=== PATIENT | female | born 1995 | race Caucasian/White ===

== ENCOUNTER → 2018-07-09 19:53 | Observation (INO) ==
[2018-07-09 16:57] LABS: Amphetamine Screen,Urine Negative ng/mL (Cutoff=1000); Barbiturate Screen,Urine Negative ng/mL (Cutoff=200); Benzodiazepines Screen,Urine Negative ng/mL (Cutoff=200); Cannabinoid Screen,Urine Negative ng/mL (Cutoff = 50); Cocaine Screen,Urine Negative ng/mL (Cutoff= 300); Opiate Screen,Urine Negative ng/mL (Cutoff=300); Phencyclidine Screen,Urine Negative ng/mL (Cutoff=25)
--- NOTE | 2018-07-09 19:30 | OB/GYN Progress Note ---
Date of Encounter: 07/09/18 Time of Encounter: 19:27 - Assessment and Plan (1) 37 weeks gestation of Current Visit: Yes Status: Acute (2) Fall (on) (from) other stairs and steps, initial encounter Current Visit: Yes Status: Acute Occasional contraction on monitor, but patient denies any current pain or cramping, discharged home with labor and when to return to triage precautions. Subjective - Subjective Interval history: Pt states about 1030am had fall at home fell down two stairs and landed on buttocks, denies hitting abdomen or sides. Pt states in hour following fall she had intense cramping, but always had good movement, denies vaginal bleeding or leaking of fluid. Was seen in Dr. Coronel office this afternoon and was sent over for 4 hours of monitoring. A+ blood type. Antepartum ROS: movement normal, contractions, no loss of fluid, no vaginal bleeding Objective - Vital Signs Vital Signs: Intake and Output 07/09/18 07/09/18 07/09/18 07:59 15:59 23:59 Other: Weight 100.244 kg Patient Weight 07/09/18 23:59 Weight 100.244 kg - Exam FHR: auscultation normal FHR comments: Baseline 135 Abdomen: Present: normal appearance, soft (no pain with any abdominal palpation ), gravid
== END | disposition home or self-care (01) ==
LOC: 1NENULAB
PROVIDERS: ADMIT Student in an Organized Health Care Education/Training Program; ATTEND Student in an Organized Health Care Education/Training Program

== ENCOUNTER 2018-08-02 22:00 | Inpatient (IN) ==
[2018-08-02] MEDS ORDERED: Ringers Solution, Lactated 1,000 ML ONE (22:56)
[2018-08-02] MEDS ORDERED: Famotidine 20 MG/2 ML VIAL IVP PRN (23:10)
[2018-08-02] MEDS ORDERED: Naloxone 0.4 MG/ML INJ IVP PRN (23:10)
[2018-08-02 23:16] LABS: Basophils % 0.2 %; Eosinophils # 0.1 K/mcL (0.0-0.6); Eosinophils % 0.7 %; Hemoglobin 11.5 g/dL (11.5-15.4); Immature Granulocytes % 0.5 % (0-4); Lymphocytes # 2.6 K/mcL (0.6-4.6); Lymphocytes % 23.3 %; Mean Corpuscular HGB Conc 33.8 g/dL (31.6-35.5); Mean Corpuscular Hemoglobin 31.2 pg (28.0-33.3); Mean Corpuscular Volume 92.1 fL (83.0-100.0); Monocytes # 0.8 K/mcL (0.0-1.3); Monocytes % 7.2 %; Neutrophils # 7.6 K/mcL (1.6-8.9); Platelet Count 258 K/mcL (140-400); Red Blood Count 3.69 M/mcL (3.82-4.97); Red Cell Distribution Width 12.9 % (11.5-14.5); Segmented Neutrophils % 68.1 %
[2018-08-02] MEDS ORDERED: miSOPROStol 100 MCG TABLET PO PRN (23:24)
[2018-08-02 23:37] LABS: Amphetamine Screen,Urine Negative ng/mL (Cutoff=1000); Barbiturate Screen,Urine Negative ng/mL (Cutoff=200); Benzodiazepines Screen,Urine Negative ng/mL (Cutoff=200); Cannabinoid Screen,Urine Negative ng/mL (Cutoff = 50); Cocaine Screen,Urine Negative ng/mL (Cutoff= 300); Opiate Screen,Urine Negative ng/mL (Cutoff=300); Phencyclidine Screen,Urine Negative ng/mL (Cutoff=25)
[2018-08-03] MEDS ORDERED: Ringers Solution, Lactated 1,000 ML ONE ×2 (01:47→09:11)
[2018-08-03] MEDS ORDERED: Famotidine 20 MG/2 ML VIAL IVP ONE (01:59)
[2018-08-03] MEDS ORDERED: EPHEDrine 50 MG/ML VIAL IVP PRN (07:34)
--- NOTE | 2018-08-03 07:38 | Anesthesia Evaluation PreOp ---
Date of Encounter: 08/03/18 Time of Encounter: 07:29 - Past History Planned Operation: vaginal del, G1 induction Cardiac History: Denies any Significant Hx Pulmonary History: Denies Any Significant HX TANK CAR LOADER History: Denies Any Significant HX Other Medical History: Denies Any Significant HX Anesthesia History: No Prior Anesthetic Complications, Past Anesthesia (yes, no family hx.) Alcohol Use: none Drug use: none Medications and Allergies Vit No.129/Iron/FA [ One Daily Tablet] 1 mg PO DAILY 07/09/18 [ History] 3 Allergy/AdvReac Type Severity Reaction Status Date / Time No Known Allergies Allergy Verified 02/02/18 14:46 Anesthesia Results - Labs 08/02/18 22:45 Anesthesia Exam - HEENT Pupil (Motor): Pupils equal Mallampati: II Teeth: Normal Oral Opening: Greater than 3 - TANK CAR LOADER LOC: Oriented TANK CAR LOADER Motor: Normal RUE, Normal LUE, Normal RLE, Normal LLE, Normal Face TANK CAR LOADER Sensory: Normal: RUE, LUE, RLE, LLE, Face - Cardiac Rhythm: Regular Murmur: None - Pulmonary Breath Sounds: bilateral Clear Respiratory Effort: Symmetrical Anesthesia Assess/Plan ASA Score: 2 Modified [place] Scale for Level of Consciousness: Cooperative, oriented, and tranquil Anesthetic Plan: General, Regional Monitoring Plan: Standard Monitors Recovery Plan: PACU
[2018-08-03] MEDS ORDERED: Epidural Premix (fent/bupiv) 110 ML EP SCH (07:45)
--- NOTE | 2018-08-03 08:09 | OB/GYN History & Physical ---
Date of Encounter: 08/03/18 Time of Encounter: 08:06 Assessment and Plan (1) Post term over 40 weeks Current visit: Yes Status: Acute (2) Elective induction of labor planned Current visit: Yes Status: Acute History of Present Illness Chief complaint: induction of labor HPI: Ms. Chopra is a 23 year old female 1 who presented to labor and delivery for induction of labor at 40 weeks and 4 days. She is doing well. She is having no complaint of any kind today. Patient for some monitor was found to have a nice reactive tracing. Patient was given Cytotec to begin her labor. She will then start with a Kelley induction. She is doing well. She is having no complaints of any kind today. She had no questions. She has no drug allergies. She is currently on vitamins. She has no chronic medical conditions. Surgical history includes a tonsillectomy and lymph node biopsy from Scratch fever. She has no history of abnormal Pap smears, STDs or pelvic infections. She has no history of abnormal breast findings. Socially she denies tobacco, alcohol, illicit drug use. Family history is noncontributory. Past Med Surg Social Fam HX - Past Medical History Medical history: no medical history Psychiatric history: no psych history - Past Surgical History Surgical History: no surgical history Additional surgical history: cat scratch fever (2000) T&A (2010) - Social History Smoking Status: Former smoker Smokeless Tobacco Status: No Alcohol use: none Drug use: none - Family History Mother Age: 50 Family Member Ethnicity: Non- Living Status: Still Living Hx Family Cardiac Disorders: No Hx Family Respiratory Disorders: No Hx Family Cancer: No Hx Family GI Disorders: No Hx Family Genitourinary Disorders: No Hx Family Endocrine Disorder: No Hx Family Musculoskeletal Disorders: No Hx Family Neuromuscular Disorders: No Hx Family Neurologic Disorders: No Hx Family HEENT Disorders: No Hx Family Autoimmune Disorders: No Hx Family Reproductive Disorders: No Hx Family Psychosocial Disorders: No Obstetrical History - Pregnancies : 1 Medications and Allergies Vit No.129/Iron/FA [ One Daily Tablet] 1 mg PO DAILY 07/09/18 [ History] 3 Allergy/AdvReac Type Severity Reaction Status Date / Time No Known Allergies Allergy Verified 02/02/18 14:46 Exam - Constitutional Constitutional: well developed, well nourished, no acute distress, average body habitus - HEENT HEENT: PERRL - Neck Neck exam: full ROM - Lungs Respiratory exam: CTAB - Cardiovascular Cardiovascular exam: RRR - Breasts Breast: bilateral: normal - Abdomen Abdomen: Present: bowel sounds normal, gravid, non tender - Extremities Extremities exam: full ROM - Vagina Vagina: Present: normal moisture - Cervix Dilation: 2 Effacement: 50 Station: -2 - Uterus Uterus exam: Present: normal size Results Result Diagrams: 08/02/18 22:45 Abnormal lab results WBC 11.2 K/mcL (4.3-11.1) H 08/02/18 22:45 RBC 3.69 M/mcL (3.82-4.97) L 08/02/18 22:45 Hct 34.0 % (35.3-44.9) L 08/02/18 22:45 All other labs normal. - VTE Reasons for not Prescribing Prophylaxis: Treatment not Indicated - Low risk for VTE
--- NOTE | 2018-08-03 08:13 | OB/GYN Progress Note ---
Date of Encounter: 08/03/18 Time of Encounter: 08:10 - Assessment and Plan (1) Post term over 40 weeks Current Visit: Yes Status: Acute (2) Elective induction of labor planned Current Visit: Yes Status: Acute Subjective - Subjective Principal diagnosis: 40+ week induction of labor Interval history: Tino is a 23-year-old female 1 at 40 weeks and 5 days induced for postdates. Patient had 2 doses of Cytotec. This a.m. Kelley induction was begun with a 60 mL Kelley and Pitocin. The Kelley was placed without any difficulty. Patient tolerated procedure well. heart rate 130s category 1 , irregular contractions noted. Objective - Vital Signs Vital Signs: Intake and Output 08/02/18 08/03/18 08/03/18 23:59 07:59 15:59 Other: Weight 104.326 kg - Exam FHR: category 1 Auscultation: bilateral: normal Abdomen: Present: normal appearance, soft, gravid Uterus: Present: normal Cervical dilation: 2 Cervix effacement: 50 station: -2 - Labs Labs: Abnormal lab results WBC 11.2 K/mcL (4.3-11.1) H 08/02/18 22:45 RBC 3.69 M/mcL (3.82-4.97) L 08/02/18 22:45 Hct 34.0 % (35.3-44.9) L 08/02/18 22:45
[2018-08-03] MEDS ORDERED: Lidocaine -MPF 2% 5 ML VIAL ONE (08:21)
[2018-08-03] MEDS ORDERED: Lidocaine/EPI 1:200k 2% PF 20 ML VIAL ONE (08:22)
[2018-08-03] MEDS ORDERED: *HR* Nalbuphine 10 MG/ML AMPUL IV PRN (08:58)
[2018-08-03] MEDS ORDERED: Ringers Solution, Lactated 1,000 ML IVC SCH (09:45)
[2018-08-03] MEDS ORDERED: Oxytocin 20 units/ LR 1000 mL 20 UNIT/1,000 ML BAG IVC SCH ×2 (09:45→22:04)
[2018-08-03] MEDS ORDERED: Oxytocin 20 units/ LR 1000 mL 20 UNIT/1,000 ML BAG IVC ONE ×2 (09:52→22:11)
--- NOTE | 2018-08-03 16:03 | Anesthesia Procedures ---
Date of Encounter: 08/03/18 Time of Encounter: 15:42 Procedures: Anesthesia - Epidural/Spinal Patient ID/Chart reviewed: Yes Patient examined: Yes OB Eval: Gestational age: term OB Eval: : 1 OB Eval: Contractions: Non-stressed pattern Consent Obtained: Yes Supplemental Oxygen: None/Room Air Site Prep: Aseptic Technique, Sterile prep and drape, 0.5% Chlorhexidine/Alcohol Patient position: upright Local Anesthetic: Lidocaine 1% Amount of Local Anesthetic used: 2 Touhy Needle Gauge: 18 Touhy Needle Depth (cm): 8 Catheter Depth at Skin (cm): 12 Test Dose (1.5% Lido + Epi): Volume given (mls): 3 Test Dose Result: Negative Loading Dose: Other: 10ml from solution Loading Dose Administered: Thru Catheter Infusion Med: 0.125% Bupivacaine w/ 2 mcg/ml Fentanyl Infusion Rate (mls/hr): [address]: Tegaderm, Tape Interspace Used: L3-L4 Loss of Resistance (NIRAV): Yes (saline) Blood: No CSF: No Paresthesia: No Procedure: vss though out procedure, FHR stable per RN's
--- NOTE | 2018-08-03 16:29 | OB/GYN Progress Note ---
Date of Encounter: 08/03/18 Time of Encounter: 16:26 - Assessment and Plan (1) Post term over 40 weeks Current Visit: Yes Status: Acute (2) Elective induction of labor planned Current Visit: Yes Status: Acute Expectant management Subjective - Subjective Principal diagnosis: induction Interval history: Tino is a 23-year-old female 1 at 40-1/2 weeks who was scheduled for induction of labor. Kelley induction was started. Kelley is now out. Artificial rupture membranes was performed. Sterile vaginal exam patient is 7 90/-1 station. Vertex presentation. Category 1 tracing Objective - Exam FHR: category 1 Abdomen: Present: normal appearance, soft, gravid Uterus: Present: normal Cervical dilation: 7 Cervix effacement: 90 station: -1 - Labs Labs: Abnormal lab results WBC 11.2 K/mcL (4.3-11.1) H 08/02/18 22:45 RBC 3.69 M/mcL (3.82-4.97) L 08/02/18 22:45 Hct 34.0 % (35.3-44.9) L 08/02/18 22:45
[2018-08-03] MEDS ORDERED: Benzocaine/Menthol 56 GM AEROSOL SPRAY TP PRN (22:03)
[2018-08-03] MEDS ORDERED: Lanolin 28 GM TUBE TP PRN (22:03)
[2018-08-03] MEDS ORDERED: Acetaminophen 325 MG TABLET PO PRN (22:04)
[2018-08-03] MEDS: Ampicillin 2 GM in 0.9 % Sodium Chloride Mini Bag 100 ML IVPB SCH (22:16)
--- NOTE | 2018-08-03 22:17 | OB/GYN Procedure Note ---
Delivery - Delivery Date: 08/03/18 Provider: Caroline Marshall (Dr. Coronel present for delivery) Intrapartum events: febrile- temp >100.3, meconium Delivery induction: AROM, oxytocin, jackson Delivery augmentation: rupture of membranes, pitocin Delivery monitor: external FHT, external uterine, internal FHT, internal uterine Anesthesia: epidural Quantitated Blood Loss: 350 - Infant (s) A Infant Delivery Date: 08/03/18 Delivery Time: 21:30 Presentation: vertex Position: OA Route of delivery: Gender: Female Viability: Viable Pounds: 9 Ounces: 8 Weight Gram: 4300 kg Shoulder Dystocia Maneuvers: Spenser maneuver, suprapubic pressure, Anderson maneuver Specimens collected: cord blood Placenta: spontaneous Cord: nuchal cord - Repair Episiotomy: none Laceration Description: Perineal - 2nd Degree - Complications Delivery complications: uterine atony Delivery comments: 23yo at 40+6wks GA who presented for IOL for dates. Called to bedside after bout of nausea, found to be C/C/+1. With good maternal effort, patient pushed with contraction(s) to +3 station. Infant was in direct OA position. Delivery of head was performed, loose nuchal was appreciated x1. Easily reduced. Restitution of head went from direct OA to RODNEY. At this time, concern for a shoulder dystocia was communicated. THe bed was lowered and Spenser was performed. Dr. Coronel was present and at directed time gave subrapubic support while anderson was performed in the counterclockwise position. THe anterior shoulder was then released from the pubic bone and the was delivered. Female was initially stunned from delivery, but was vigorous and crying within 10 seconds, pink in color. A 60second cord delay was performed, as the umbilical cord was cut then clamped, and cord blood was collected. Infant was handed off and perineum was inspected. 2nd degree perineal laceration was inspected prior to delivery of placenta. Rectal examination was performed and found to be completed intact. Placenta was delivered intact with appropriate uterine pressure. At this time, it was noted that the vaginal vault was grossly warm, concerning for possible chorioamnionitis. Temperature (oral ) was then taken and the patient was found to be febrile at 103F. Decision was made to send placenta to pathology for chorioamnionitis as we also started patient on triple ABx therapy. One dose of IM methergine was administered due to GIN. A second degree perineal laceration was then repaired in the usual fashion using 3-0 vicryl suture. Patient was found to be normotensive, non-tachycardic , and pain controlled. Uterine fundus was firm, and the patient was HDS. Delivery time: 2129 Female 4300gm, 9#8oz Placenta delivery time: 2136 2nd degree laceration, repair completed at 2145 Dr. Coronel was present for delivery of patient as well as repair. MD BERYL
[2018-08-03] MEDS: Ibuprofen 600 MG TABLET PO PRN (23:13)
[2018-08-04] MEDS ORDERED: Acetaminophen 325 MG TABLET PO SCH
[2018-08-04] MEDS: Clindamycin 900 MG/50 ML 900 MG/50 ML IV.SOLN IVPB SCH ×4 (00:39→23:20)
[2018-08-04] MEDS: Gentamicin 120 MG in 0.9 % Sodium Chloride 100 ML IVPB SCH ×3 (02:33→20:50)
[2018-08-04] MEDS: Ibuprofen 600 MG TABLET PO PRN ×2 (02:33→12:31)
[2018-08-04] MEDS: Ampicillin 2 GM in 0.9 % Sodium Chloride Mini Bag 100 ML IVPB SCH ×4 (04:30→22:07)
[2018-08-04 04:35] LABS: Basophils % 0.1 %; Eosinophils % 0.1 %; Hematocrit 32.2 % (35.3-44.9); Hemoglobin 10.9 g/dL (11.5-15.4); Immature Granulocytes % 0.6 % (0-4); Lymphocytes # 1.4 K/mcL (0.6-4.6); Lymphocytes % 7.6 %; Mean Corpuscular HGB Conc 33.9 g/dL (31.6-35.5); Mean Corpuscular Hemoglobin 30.7 pg (28.0-33.3); Mean Corpuscular Volume 90.7 fL (83.0-100.0); Mean Platelet Volume 10.8 fL (9.4-12.4); Monocytes # 1.4 K/mcL (0.0-1.3); Monocytes % 7.9 %; Neutrophils # 15.1 K/mcL (1.6-8.9); Platelet Count 165 K/mcL (140-400); Red Blood Count 3.55 M/mcL (3.82-4.97); Red Cell Distribution Width 12.8 % (11.5-14.5); Segmented Neutrophils % 83.7 %
[2018-08-04 04:48] LABS: BUN/Creatinine Ratio 14 (6-26); Blood Urea Nitrogen 7 mg/dL (6-20); eGFR For Non-African Americans > 60 (> 60)
--- NOTE | 2018-08-04 06:33 | Anesthesia Evaluation Post Op ---
Date of Encounter: 08/04/18 Time of Encounter: 06:31 - Vital Signs Vital Signs: vss - Lungs Lungs: Clear Ascult./Percussion - Airway Airway: Non-obstructed - Mental Status Mental Status: Asleep with brisk response to light stimulation - Pain Pain Scale used: Ileana (Faces) - Nausea Vomiting Nausea Vomiting: Not Present - Discharge PostOp Status: Transfer Patient to floor (no c/o, been ambulating)
[2018-08-04] MEDS ORDERED: Aminoglycoside Consult 1 EACH MC ONE (07:21)
[2018-08-04] MEDS ORDERED: Methylergonovine 0.2 MG/ML AMPUL IM ONE (08:17)
[2018-08-04] MEDS: Prenatal Vit/FA 1 EACH TABLET PO SCH (08:46)
--- NOTE | 2018-08-04 08:54 | OB/GYN Progress Note ---
Date of Encounter: 08/04/18 Time of Encounter: 08:50 - Assessment and Plan (1) (normal spontaneous vaginal delivery) Current Visit: Yes Status: Acute Pt stable in Pain well managed - Motrin as needed Remains on antibiotic therapy for maternal fever immediately after delivery Currently afebrile Plan for discharge tomorrow Subjective - Subjective Principal diagnosis: Interval history: Pt seen and examined at bedside in no acute distress Pain well controlled with motrin Reports moderate lochia without passage of clots Normal appetite, tolerates diet, Ambulating without difficulty Voiding appropriately Denies BM and flatus - however, bowel sounds present Plans to both breastfeed and supplement with formula Will discuss control with Dr. Coronel at f/u appt Patient reports: appetite normal, voiding normally, pain well controlled, ambulating normally : doing well, nursing well, bottle feeding Objective - Latest Vital Signs Latest vital signs: Vital Signs Temp Pulse Pulse Resp BP Pulse Ox 08/04/18 07:58 97.7 F 80 12 110/71 97 08/04/18 02:28 97.8 F 82 82 15 111/75 96 08/04/18 01:20 98.2 F 92 92 15 114/73 08/04/18 00:28 99.9 F H 99 16 112/72 96 08/04/18 00:15 99.9 F H 99 16 112/72 96 Intake and Output 08/03/18 08/04/18 08/04/18 23:59 07:59 15:59 Intake Total 100 / 100 200 / 200 300 / 300 Output Total 2500 / 2500 Balance 100 / 100 -2300 / -2300 300 / 300 Intake: IV Fluids 100 / 100 Ampicillin 2 GM In 0.9 % Sodium 100 / 100 Chloride (Mini-Bag +) 100 ML @ 200 mls/hr IVPB Q6H [facility] Rx#: [id number] Oral 300 / 300 Intake, Autotransfusion Amount 200 / 200 Output: Urine 2500 / 2500 Other: Weight 99.3 kg Patient Weight 08/04/18 23:59 Weight 99.3 kg - Exam Lungs: bilateral: normal Chest: Normal S1, Normal S2 Extremities: Present: normal, edema Abdomen: Present: normal appearance, soft Uterus: Present: normal, firm Uterus Position: At Umbilicus - Labs Labs: Laboratory Results - last 24 hr 08/04/18 08/04/18 03:58 03:58 WBC 18.0 H D RBC 3.55 L Hgb 10.9 L Hct 32.2 L MCV 90.7 MCH 30.7 MCHC 33.9 RDW 12.8 Plt Count 165 MPV 10.8 Immature Gran % 0.6 Seg Neutrophils % 83.7 Lymphocytes % 7.6 Monocytes % 7.9 Eosinophils % 0.1 Basophils % 0.1 Neutrophils # 15.1 H Lymphocytes # 1.4 Monocytes # 1.4 H Eosinophils # 0.0 Basophils # 0.0 BUN 7 Creatinine 0.49 L Est GFR ( Amer) > 60 Est GFR (Non-Af Amer) > 60 BUN/Creatinine Ratio 14
[2018-08-04] MEDS ORDERED: Prenatal Vit/FA 1 EACH TABLET PO SCH (09:00)
[2018-08-04 22:23] LABS: Basophils % 0.2 %; Eosinophils # 0.1 K/mcL (0.0-0.6); Eosinophils % 0.5 %; Hematocrit 31.6 % (35.3-44.9); Hemoglobin 10.8 g/dL (11.5-15.4); Immature Granulocytes % 0.8 % (0-4); Lymphocytes # 2.3 K/mcL (0.6-4.6); Lymphocytes % 13.3 %; Mean Corpuscular HGB Conc 34.2 g/dL (31.6-35.5); Mean Corpuscular Hemoglobin 31.3 pg (28.0-33.3); Mean Corpuscular Volume 91.6 fL (83.0-100.0); Mean Platelet Volume 10.7 fL (9.4-12.4); Monocytes % 5.9 %; Neutrophils # 13.6 K/mcL (1.6-8.9); Platelet Count 182 K/mcL (140-400); Red Blood Count 3.45 M/mcL (3.82-4.97); Red Cell Distribution Width 13.2 % (11.5-14.5); Segmented Neutrophils % 79.3 %
[2018-08-05] MEDS: Ampicillin 2 GM in 0.9 % Sodium Chloride Mini Bag 100 ML IVPB SCH (04:52)
[2018-08-05] MEDS: Ibuprofen 600 MG TABLET PO PRN ×2 (05:37→21:55)
[2018-08-05] MEDS: Gentamicin 120 MG in 0.9 % Sodium Chloride 100 ML IVPB SCH (06:14)
[2018-08-05] MEDS: Clindamycin 900 MG/50 ML 900 MG/50 ML IV.SOLN IVPB SCH (07:30)
[2018-08-05] MEDS: Prenatal Vit/FA 1 EACH TABLET PO SCH (08:32)
--- NOTE | 2018-08-05 08:51 | OB/GYN Progress Note ---
Date of Encounter: 08/05/18 Time of Encounter: 08:48 - Assessment and Plan (1) Mother currently breast-feeding Current Visit: Yes Status: Acute (2) Chorioamnionitis Current Visit: Yes Status: Acute Temperature last evening 100.3 despite antibiotics and motrin. Plan to transition to PO antibiotics today and observe. Anticipate home PPD#3. Qualifiers: Fetus number: single or unspecified fetus Trimester: unspecified trimester Qualified Code(s): O41.1290 - Chorioamnionitis, unspecified trimester, not applicable or unspecified (3) (normal spontaneous vaginal delivery) Current Visit: Yes Status: Acute Subjective - Subjective Interval history: Pt spiked a fever again last evening despite triple antibiotics and motrin. She reports being sore but otherwise feeling well this am. Patient reports: appetite normal, voiding normally, pain well controlled, ambulating normally [place]: doing well, in NICU Objective - Latest Vital Signs Latest vital signs: Vital Signs Temp Pulse Pulse Resp BP Pulse Ox 08/05/18 07:56 98.0 F 71 12 108/68 96 08/05/18 01:25 98.8 F 104 14 103/99 98 08/04/18 21:14 99.9 F H 82 16 121/75 99 08/04/18 20:15 100.3 F H 93 14 126/73 97 08/04/18 16:00 98.3 F 83 74 16 112/71 Intake and Output 08/04/18 08/05/18 08/05/18 23:59 07:59 15:59 Intake Total 653 / 653 150 / 150 Output Total 1000 / 1000 Balance -347 / -347 150 / 150 Intake: IV Fluids 353 / 353 150 / 150 Ampicillin 2 GM In 0.9 % Sodium 200 / 200 100 / 100 Chloride (Mini-Bag +) 100 ML @ 200 mls/hr IVPB Q6H [facility] Rx#: [id number] Cleocin Premix 900 MG/50 ML 900 50 / 50 50 / 50 mg In 50 ml @ 50 mls/hr IVPB Q8H [facility] Rx#:[id number] Gentamicin 120 MG In 0.9 % 103 / 103 Sodium Chloride 100 ML @ 99.118 mls/hr IVPB Q8H [facility] Rx#: [id number] Oral 300 / 300 Output: Urine 1000 / 1000 Other: Meal Dinner Percent of Meal Consumed 100% # Voids 1 Weight 98.747 kg Patient Weight 08/05/18 23:59 Weight 98.747 kg - Exam Lungs: bilateral: normal Chest: Normal S1, Normal S2 Extremities: Present: edema (1+ bilaterally) Abdomen: Present: soft. Absent: tenderness Uterus: Present: firm. Absent: tenderness Uterus Position: 1 Finger Below Umbilicus - Labs Labs: Laboratory Results - last 24 hr 08/04/18 08/04/18 21:56 21:56 WBC 17.1 H RBC 3.45 L Hgb 10.8 L Hct 31.6 L MCV 91.6 MCH 31.3 MCHC 34.2 RDW 13.2 Plt Count 182 MPV 10.7 Immature Gran % 0.8 Seg Neutrophils % 79.3 Lymphocytes % 13.3 Monocytes % 5.9 Eosinophils % 0.5 Basophils % 0.2 Neutrophils # 13.6 H Lymphocytes # 2.3 Monocytes # 1.0 Eosinophils # 0.1 Basophils # 0.0 Lactic Acid 0.7
[2018-08-05] MEDS: Azithromycin 250 MG TABLET PO SCH (11:19)
[2018-08-05] MEDS: cephALEXin 500 MG CAPSULE PO SCH ×2 (11:20→20:36)
[2018-08-06 08:27] VITALS: BP 119/66
--- NOTE | 2018-08-06 08:53 | Discharge Summary ---
Date of Encounter: 08/06/18 Time of Encounter: 08:50 - Discharge Diagnosis (1) (normal spontaneous vaginal delivery) Priority: Primary Status: Acute Comments: S/P Vaginal Delivery Day 2 Pain is well controlled Lochia is light and without clots VSS Tolerating regular diet, passing flatus Voiding without difficulty Discharge home today (2) Chorioamnionitis Priority: Secondary Status: Acute Qualifiers: Fetus number: single or unspecified fetus Trimester: unspecified trimester Qualified Code(s): O41.1290 - Chorioamnionitis, unspecified trimester, not applicable or unspecified (3) Mother currently breast-feeding Priority: Secondary Status: Acute - Discharge Medications Prescriptions: Ibuprofen [Motrin] 600 mg PO Q6HR PRN #30 tablet PRN Reason: Cramping Azithromycin [Zithromax] 250 mg PO DAILY 4 Days #4 tablet Breast Pump [BREAST PUMP] 1 each .ROUTE AD #1 each cephALEXin [Keflex] 500 mg PO BID 9 Days #18 capsule Docusate [Colace] 100 mg PO BID PRN #30 capsule PRN Reason: Constipation Ferrous Sulfate 325 mg PO DAILY #90 tablet Home Medications: Vit No.129/Iron/FA [ One Daily Tablet] 1 mg PO DAILY 07/09/18 [ History] Acetaminophen [Tylenol] 650 mg PO Q6HR PRN tablet 08/06/18 [Rx] Azithromycin [Zithromax] 250 mg PO DAILY 4 Days #4 tablet 08/06/18 [Rx] Breast Pump [BREAST PUMP] 1 each .ROUTE AD #1 each 08/06/18 [Rx] Docusate [Colace] 100 mg PO BID PRN #30 capsule 08/06/18 [Rx] Ferrous Sulfate 325 mg PO DAILY #90 tablet 08/06/18 [Rx] Ibuprofen [Motrin] 600 mg PO Q6HR PRN #30 tablet 08/06/18 [Rx] cephALEXin [Keflex] 500 mg PO BID 9 Days #18 capsule 08/06/18 [Rx] Allergies/Adverse Reactions: 3 Allergy/AdvReac Type Severity Reaction Status Date / Time No Known Allergies Allergy Verified 02/02/18 14:46 Data Procedures and tests throughout hospitalization: Laboratory Tests 08/02/18 08/02/18 08/02/18 22:45 23:10 23:10 WBC 11.2 H RBC 3.69 L Hgb 11.5 Hct 34.0 L MCV 92.1 MCH 31.2 MCHC 33.8 RDW 12.9 Plt Count 258 MPV 11.0 Immature Gran % 0.5 Seg Neutrophils % 68.1 Lymphocytes % 23.3 Monocytes % 7.2 Eosinophils % 0.7 Basophils % 0.2 Neutrophils # 7.6 Lymphocytes # 2.6 Monocytes # 0.8 Eosinophils # 0.1 Basophils # 0.0 BUN Creatinine Est GFR ( Amer) Est GFR (Non-Af Amer) BUN/Creatinine Ratio Lactic Acid Urine Opiates Screen Negative Ur Barbiturates Screen Negative Ur Phencyclidine Scrn Negative Ur Amphetamines Screen Negative U Benzodiazepines Scrn Negative Urine Cocaine Screen Negative U Marijuana (THC) Screen Negative Ur Drug Screen Interp See Below Specimen Rejected Labelling 08/04/18 08/04/18 08/04/18 03:58 03:58 21:56 WBC 18.0 H D 17.1 H RBC 3.55 L 3.45 L Hgb 10.9 L 10.8 L Hct 32.2 L 31.6 L MCV 90.7 91.6 MCH 30.7 31.3 MCHC 33.9 34.2 RDW 12.8 13.2 Plt Count 165 182 MPV 10.8 10.7 Immature Gran % 0.6 0.8 Seg Neutrophils % 83.7 79.3 Lymphocytes % 7.6 13.3 Monocytes % 7.9 5.9 Eosinophils % 0.1 0.5 Basophils % 0.1 0.2 Neutrophils # 15.1 H 13.6 H Lymphocytes # 1.4 2.3 Monocytes # 1.4 H 1.0 Eosinophils # 0.0 0.1 Basophils # 0.0 0.0 BUN 7 Creatinine 0.49 L Est GFR ( Amer) > 60 Est GFR (Non-Af Amer) > 60 BUN/Creatinine Ratio 14 Lactic Acid Urine Opiates Screen Ur Barbiturates Screen Ur Phencyclidine Scrn Ur Amphetamines Screen U Benzodiazepines Scrn Urine Cocaine Screen U Marijuana (THC) Screen Ur Drug Screen Interp Specimen Rejected 08/04/18 21:56 WBC RBC Hgb Hct MCV MCH MCHC RDW Plt Count MPV Immature Gran % Seg Neutrophils % Lymphocytes % Monocytes % Eosinophils % Basophils % Neutrophils # Lymphocytes # Monocytes # Eosinophils # Basophils # BUN Creatinine Est GFR ( Amer) Est GFR (Non-Af Amer) BUN/Creatinine Ratio Lactic Acid 0.7 Urine Opiates Screen Ur Barbiturates Screen Ur Phencyclidine Scrn Ur Amphetamines Screen U Benzodiazepines Scrn Urine Cocaine Screen U Marijuana (THC) Screen Ur Drug Screen Interp Specimen Rejected Labs on day of discharge: Preliminary micro results at discharge 08/04/18 21:56 Blood Culture - Preliminary Peripheral Venipuncture Culture is incubating and being continuously monitored for growth. Final report to follow. 08/04/18 21:56 Blood Culture - Preliminary Peripheral Venipuncture Culture is incubating and being continuously monitored for growth. Final report to follow. Date of admission: 08/02/18 22:08 Primary care physician: PCP NONE Consults: 08/03/18 22:04 Consult to Farm Machine Operator [CONS] Routine Comment: Vaginal delivery, consult needed Discharging clinician: Caroline Page Anticipated date of discharge: 08/06/18 - Patient Status Disposition: Home, Self-Care Condition: Good Functional capacity at discharge: independent ambulation Overall status at discharge: patient is progressing back to baseline - Discharge Instructions Follow Up With: NONE,PCP [Primary Care Provider] - Paul Coronel MD [Partnered Physician] - - Diet and Activity Activity: increase activity as tolerated Diet: regular diet Hospital Course Reason for admission: induction of labor, IUP at term Delivery: Episiotomy: none Laceration: none Other procedures: none complications: none Discharge diagnosis: IUP at term delivered [place] baby: female Time Attestation: Total time spent providing and/or coordinating discharge services: Time Spent: Less than 30 minutes Exam - Constitutional Vitals: Temp Pulse Resp BP Pulse Ox 98.3 F 51 16 119/66 99 08/06/18 08:25 08/06/18 08:25 08/06/18 08:25 08/06/18 08:25 08/05/18 20:15 General appearance IM: cooperative, A&O X 3, pleasant - Respiratory Respiratory exam: Present: CTAB - Cardiovascular Cardiovascular exam IM: Present: RRR, +S1, +S2 - GI/Abdominal GI/Abdominal exam IM: normal bowel sounds, soft - Rectal Rectal exam: deferred - Uterine Tone: Firm Uterus Position: At Umbilicus, Midline - Extremities Exam Extremities exam IM: Present: normal capillary refill, normal inspection, radial pulses palpable and symmetrical - Neurological Exam Neurological exam: alert, oriented X3
[2018-08-06] MEDS: Prenatal Vit/FA 1 EACH TABLET PO SCH (09:04)
[2018-08-06] MEDS: cephALEXin 500 MG CAPSULE PO SCH (09:05)
[2018-08-06] MEDS: Azithromycin 250 MG TABLET PO SCH (09:05)
[2018-08-06 09:58] LABS: Mean Corpuscular HGB Conc 34.4 g/dL (31.6-35.5); Mean Corpuscular Hemoglobin 31.5 pg (28.0-33.3); Mean Corpuscular Volume 91.7 fL (83.0-100.0); Mean Platelet Volume 10.7 fL (9.4-12.4); Platelet Count 209 K/mcL (140-400); Red Blood Count 3.49 M/mcL (3.82-4.97)
[2018-08-06] MEDS: Ibuprofen 600 MG TABLET PO PRN (13:35)
== END 2018-08-06 17:17 | disposition home or self-care (01) | DRG 775 ==
LOC: 1NENULAB 22:08 → 1NENUOBS 08-04 00:27
PROVIDERS: ADMIT Obstetrics & Gynecology; ATTEND Obstetrics & Gynecology

== ENCOUNTER 2019-07-28 08:54 | Observation (INO) ==
[2019-07-28 03:29] LABS: Basophils % 0.4 %; Eosinophils # 0.2 K/mcL (0.0-0.6); Eosinophils % 2.2 %; Hematocrit 35.1 % (35.3-44.9); Hemoglobin 11.6 g/dL (11.5-15.4); Immature Granulocytes % 0.6 % (0-4); Lymphocytes # 2.6 K/mcL (0.6-4.6); Lymphocytes % 27.1 %; Mean Corpuscular Hemoglobin 30.4 pg (28.0-33.3); Mean Corpuscular Volume 91.9 fL (83.0-100.0); Mean Platelet Volume 10.4 fL (9.4-12.4); Monocytes # 0.6 K/mcL (0.0-1.3); Monocytes % 6.7 %; Platelet Count 226 K/mcL (140-400); Red Blood Count 3.82 M/mcL (3.82-4.97); Red Cell Distribution Width 13.1 % (11.5-14.5); White Blood Count 9.5 K/mcL (4.3-11.1)
[2019-07-28 03:30] LABS: Bilirubin,Urine Negative (Negative); Blood,Urine Large (Negative); Clarity,Urine Cloudy (Clear); Color,Urine Dark Yellow (Yellow); Glucose,Urine (UA) Normal (Normal); Ketones,Urine Negative (Negative); Leukocyte Esterase,Urine Small (Negative); Nitrite,Urine Negative (Negative); Protein,Urine 100 mg/dL (Neg-Trace); Specific Gravity,Urine 1.026 (1.010-1.025); Urobilinogen,Urine Normal (Normal)
[2019-07-28 03:31] LABS: Bacteria,Urine Few per hpf (None-Few); Hyaline Casts,Urine None Seen per lpf (None-Few); RBC,Urine TNTC per hpf (0-3); Squamous Epithelial Cell,Urine Many per lpf (None-Few); WBC,Urine 30-50 per hpf (0-3)
[2019-07-28 03:39] LABS: Amphetamine Screen,Urine Negative ng/mL (Cutoff=1000); Barbiturate Screen,Urine Negative ng/mL (Cutoff=200); Benzodiazepines Screen,Urine Negative ng/mL (Cutoff=200); Cannabinoid Screen,Urine Negative ng/mL (Cutoff = 50); Cocaine Screen,Urine Negative ng/mL (Cutoff= 300); Opiate Screen,Urine Negative ng/mL (Cutoff=300); Phencyclidine Screen,Urine Negative ng/mL (Cutoff=25)
--- NOTE | 2019-07-28 04:39 | OB/GYN Progress Note ---
Date of Encounter: 07/28/19 Time of Encounter: 03:56 - Assessment and Plan (1) 35 weeks gestation of Current Visit: Yes Status: Acute Admit to observation for severe left flank pain SVE 1/thick/high, rare contractions noted. (2) Acute left flank pain Current Visit: Yes Status: Acute Moderate left CVA tenderness Urinalysis collected, culture pending Retroperitoneum ultrasound ordered for this AM at 0900 Strain all urine Continuous IV Fluids Nubain given x 1. Will evaluate for further pain medication needs. (3) Nausea/vomiting in Current Visit: Yes Status: Acute IV Zofran or Phenergan as needed for nausea/vomiting Subjective - Subjective Principal diagnosis: Left flank pain Interval history: Patient arrives today with complaint of back pain, left sided, that woke her from her sleep at approximately 0030 this am. She reports positive movement and denies vaginal bleeding and watery discharge. On arrival, she was unable to sit back in the bed due to the pain. She was also vomiting, she states from the pain. She was pale and appeared unwell. Due to the pain, she was unable to sit still enough to obtain a non-broken tracing but moderate variability was noted. She was given IV fluids and Zofran and Nubain and Phenergan were also give >1 hr later. With those meds, she had enough pain relief to rest in bed. She does report a history of kidney stones outside of but none during this . Patient states she tried Tylenol and heating pad at home but neither helped her pain. She has a renal ultrasound ordered for 9AM. Will wait for imaging results to develop further plan of care. Antepartum ROS: movement normal, no loss of fluid, no vaginal bleeding, no contractions Objective - Vital Signs Vital Signs: Intake and Output 07/27/19 07/27/19 07/28/19 15:59 23:59 07:59 Other: Weight 98.475 kg Patient Weight 07/28/19 23:59 Weight 98.475 kg - Exam FHR: auscultation normal, category 1 Auscultation: bilateral: normal Abdomen: Present: normal appearance, soft. Absent: distention, tenderness Uterus: Present: normal Cervical dilation: 1 Cervix effacement: Thick station: -3 - Labs Labs: Abnormal lab results Hct 35.1 % (35.3-44.9) L 07/28/19 03:00 Urine Clarity Cloudy (Clear) A 07/28/19 03:17 Ur Specific [place] 1.026 (1.010-1.025) H 07/28/19 03:17 Urine Protein 100 mg/dL (Neg-Trace) H 07/28/19 03:17 Urine Blood Large (Negative) H 07/28/19 03:17 Ur Leukocyte Esterase Small (Negative) H 07/28/19 03:17 Urine Microscopic RBC TNTC per hpf (0-3) H 07/28/19 03:17 Urine Microscopic WBC 30-50 per hpf (0-3) H 07/28/19 03:17 Ur Squamous Epith Cells Many per lpf (None-Few) H 07/28/19 03:17 Ur Culture Indicated? YES (NO) A 07/28/19 03:17
[~2019-07-28 08:54] MED LIST: *HR* Nalbuphine 10 MG/ML AMPUL IM PRN; *HR* Promethazine 25 MG/ML VIAL IVP ONE; Ondansetron 4 MG/2 ML VIAL IVP PRN; Ondansetron 4 MG/2 ML VIAL ONE; Ringers Solution, Lactated 1,000 ML IVC ONE; Ringers Solution, Lactated 1,000 ML IVC SCH; Ringers Solution, Lactated 1,000 ML ONE
[2019-07-28] MEDS ORDERED: *HR* Nalbuphine 10 MG/ML AMPUL IV PRN (09:53)
--- NOTE | 2019-07-28 11:40 | Urology - Consult Note ---
<Nandini Frausto N - Last Filed: 07/28/19 11:36> Date of Encounter: 07/28/19 Time of Encounter: 11:36 - Assessment and Plan (1) 35 weeks gestation of Current Visit: Yes Status: Acute (2) Acute left flank pain Current Visit: Yes Status: Acute Assessment and plan: Patient is a 24-year-old female who presents at 35 weeks gestation with left flank pain and a history of nephrolithiasis. Patient reports pain discontinued, and she is concerned that she will represent with intractable pain if she is dismissed home. We discussed the next step in her workup would be to proceed with an MRI without contrast of the abdomen and pelvis to evaluate for obstructing ureteral calculi. We discussed stone treatment options including ureteroscopic stone extraction, although, this would only be an option if the stone is distal. I explained this would require general anesthesia and would greatly increase the risk of complications with her . I explained the other option would be to proceed with a nephrostomy tube placement which would be the preferred option of kidney stone management during . Patient verbalizes understanding, and she wishes to proceed with MRI. (3) Nausea/vomiting in Current Visit: Yes Status: Acute Urology CN:HPI Consult date: 07/28/19 Reason for consult Urology: Hydronephrosis (history of nephrolithiasis; 35 weeks EGA) Requesting physician: Padmini Merritt History of present illness: Patient is a 24-year-old 001 female who presents at 35 weeks estimated gestational age with complaints of left flank pain, intractable nausea and vomiting, and microscopic hematuria. Patient has a known history of nephrolithiasis, and she passed a stone by medical expulsion approximately 8 years ago. Patient reports sudden, acute onset of left flank pain that awakened her from sleep on 07/27/19. She reports pain has progressively worsened and is now accompanied with nausea and vomiting. Patient denies any history of recurrent urinary tract infection associated with this , and she denies any fever, chills, gross hematuria or dysuria. She reports good movement, and she denies any vaginal bleeding or loss of fluid. Patient underwent a renal ultrasound revealing bilateral hydronephrosis. She has not previously required any urologic surgical intervention, and she denies any known family history of renal stones. Past Med Surg Social Fam HX - Past Medical History Medical history: kidney stones, other Additional medical history: has 5 month old baby Psychiatric history: no psych history - Past Surgical History Surgical History: no surgical history Additional surgical history: cat scratch fever (2000) T&A (2010) - Social History Smoking Status: Never smoker Smokeless Tobacco Status: No Alcohol use: none Drug use: none - Family History Mother Family Member Ethnicity: Non- Living Status: Still Living Hx Family Cardiac Disorders: No Hx Family Respiratory Disorders: No Hx Family Cancer: No Hx Family GI Disorders: No Hx Family Endocrine Disorder: No Hx Family Neuromuscular Disorders: No Hx Family Neurologic Disorders: No Hx Family HEENT Disorders: No Hx Family Autoimmune Disorders: No Medications and Allergies Vit No.129/Iron/FA [ One Daily Tablet] 1 mg PO DAILY 07/09/18 [History] Nitrofurantoin (BID) [Macrobid] 100 mg PO BID 07/28/19 [History] Allergy/AdvReac Type Severity Reaction Status Date / Time No Known Allergies Allergy Verified 07/28/19 02:52 Review of Systems - Constitutional no chills, no fatigue, no fever(s) - EENT Nose, mouth and throat: no dizziness, no headache(s) - Cardiovascular no chest pain, no diaphoresis, no dyspnea - Respiratory no cough, no dyspnea - Gastrointestinal abdominal pain, nausea, vomiting - Genitourinary Genitourinary: hematuria, no change in urinary stream, no difficulty urinating, no dysuria, no urinary frequency, no urinary hesitancy, no urinary incontinence, no urinary urgency Menstruation: other ( 35 weeks) - Musculoskeletal back pain, no muscle weakness - Integumentary no erythema, no rash - Psychiatric no anxiety, no confusion - Hematologic/Lymphatic no easy bleeding, no easy bruising - Allergic/Immunologic no throat swelling, no wheezing Exam - General physical appearance Present: no distress, moderate pain - Eyes Present: PERRL, normal ocular movement - ENT Present: normal nares, no hearing loss, no congestion - Neck Present: no masses, trachea midline, no lymphadenopathy - Respiratory Present: normal respiratory effort - Cardiovascular Cardiovascular exam IM: RRR - Abdomen Abdomen: Present: soft (Gravid), non tender - Integumentary Present: no rash, no abnormal pigmentation - Neurologic Present: normal coordination - Musculoskeletal Present: other (normal posture ) Urology Results - Labs 07/28/19 03:00 Abnormal lab results Hct 35.1 % (35.3-44.9) L 07/28/19 03:00 Urine Clarity Cloudy (Clear) A 07/28/19 03:17 Ur Specific [place] 1.026 (1.010-1.025) H 07/28/19 03:17 Urine Protein 100 mg/dL (Neg-Trace) H 07/28/19 03:17 Urine Blood Large (Negative) H 07/28/19 03:17 Ur Leukocyte Esterase Small (Negative) H 07/28/19 03:17 Urine Microscopic RBC TNTC per hpf (0-3) H 07/28/19 03:17 Urine Microscopic WBC 30-50 per hpf (0-3) H 07/28/19 03:17 Ur Squamous Epith Cells Many per lpf (None-Few) H 07/28/19 03:17 Ur Culture Indicated? YES (NO) A 07/28/19 03:17 All other labs normal. - Imaging US - kidney/bladder: report reviewed <Audi George - Last Filed: 07/28/19 17:50> Date of Encounter: 07/28/19 - Assessment and Plan (1) Acute left flank pain Current Visit: Yes Status: Acute Assessment and plan: Patient seen and examined in conjunction with physician records management assistant. Ultrasound is inconclusive for identifying ureteral calculi. Because of continued pain issues we have elected to proceed with MRI per protocol as a replacement for IVP. Low radiation dose CT scan is still an option but would like to minimize radiation exposure. We will await results to determine next course of action. If there is an obstructing ureteral stone a nephrostomy tube may be her best option. Would need to determine if this could be performed at [place] at this stage of Urology Results - Labs 07/28/19 03:00 Abnormal lab results Hct 35.1 % (35.3-44.9) L 07/28/19 03:00 Urine Clarity Cloudy (Clear) A 07/28/19 03:17 Ur Specific [place] 1.026 (1.010-1.025) H 07/28/19 03:17 Urine Protein 100 mg/dL (Neg-Trace) H 07/28/19 03:17 Urine Blood Large (Negative) H 07/28/19 03:17 Ur Leukocyte Esterase Small (Negative) H 07/28/19 03:17 Urine Microscopic RBC TNTC per hpf (0-3) H 07/28/19 03:17 Urine Microscopic WBC 30-50 per hpf (0-3) H 07/28/19 03:17 Ur Squamous Epith Cells Many per lpf (None-Few) H 07/28/19 03:17 Ur Culture Indicated? YES (NO) A 07/28/19 03:17 All other labs normal.
[2019-07-28] MEDS ORDERED: 0.9 % Sodium Chloride 500 ML IVC PRN (15:00)
--- NOTE | 2019-07-28 17:37 | OB/GYN Progress Note ---
Date of Encounter: 07/28/19 Time of Encounter: 17:35 - Assessment and Plan (1) 35 weeks gestation of Current Visit: Yes Status: Acute NST reactive Pain has resolved this afternoon Declines MRI - would like to go home States she will return if pain returns Encouraged po hydration with water Discharge home with PTL labor and pain precautions Follow up in the office and PRN POC per consult with Dr Lobo (2) Acute left flank pain Current Visit: Yes Status: Acute Suspected renal stone. Patient declines MRI at this time due to having pain resolution. Subjective - Subjective Principal diagnosis: Suspected kidney stone Antepartum ROS: movement normal, no contractions Objective - Vital Signs Vital Signs: Intake and Output 07/28/19 07/28/19 07/28/19 07:59 15:59 23:59 Other: Weight 98.475 kg Patient Weight 07/28/19 23:59 Weight 98.475 kg - Exam FHR: auscultation normal, category 1 FHR comments: 140 baseline with moderate variability with 15 x 15 accels no contractions Auscultation: bilateral: normal Abdomen: Present: normal appearance, soft, gravid Uterus: Present: normal. Absent: firm, tenderness - Labs Labs: Abnormal lab results Hct 35.1 % (35.3-44.9) L 07/28/19 03:00 Urine Clarity Cloudy (Clear) A 07/28/19 03:17 Ur Specific [place] 1.026 (1.010-1.025) H 07/28/19 03:17 Urine Protein 100 mg/dL (Neg-Trace) H 07/28/19 03:17 Urine Blood Large (Negative) H 07/28/19 03:17 Ur Leukocyte Esterase Small (Negative) H 07/28/19 03:17 Urine Microscopic RBC TNTC per hpf (0-3) H 07/28/19 03:17 Urine Microscopic WBC 30-50 per hpf (0-3) H 07/28/19 03:17 Ur Squamous Epith Cells Many per lpf (None-Few) H 07/28/19 03:17 Ur Culture Indicated? YES (NO) A 07/28/19 03:17
--- NOTE | 2019-07-29 08:37 | Event Note ---
Date of Encounter: 07/29/19 Time of Encounter: 08:35 Reviewed patient's progress Notes. She declines MRI and wishes to be discharged home. If patient returns, urology is always available for consultation. Urology recommends outpatient follow-up appointment within 6-8 weeks .
--- NOTE | 2019-07-29 12:41 | Anesthesia Evaluation PreOp ---
Date of Encounter: 07/29/19 Time of Encounter: 12:00 - Past History Planned Operation: ROXANN Cardiac History: Denies any Significant Hx Pulmonary History: Denies Any Significant HX INSTRUMENT TECHNOLOGIST History: Denies Any Significant HX Other Medical History: Denies Any Significant HX Anesthesia History: No Prior Anesthetic Complications : Yes Test: Positive Alcohol Use: none Drug use: none Medications and Allergies Vit No.129/Iron/FA [ One Daily Tablet] 1 mg PO DAILY 07/09/18 [History] Nitrofurantoin (BID) [Macrobid] 100 mg PO BID 07/28/19 [History] Allergy/AdvReac Type Severity Reaction Status Date / Time No Known Allergies Allergy Verified 07/28/19 02:52 - Meds/Allergy Pre-op Review Medications Reviewed: Yes Allergies Reviewed: Yes Beta Blockers on Current Med List: No Anesthesia Results - Labs 07/28/19 03:00 Anesthesia Exam - HEENT Pupil (Motor): Pupils equal Mallampati: II Teeth: Normal Oral Opening: Greater than 3 - INSTRUMENT TECHNOLOGIST LOC: Oriented INSTRUMENT TECHNOLOGIST Motor: Normal RUE, Normal LUE, Normal RLE, Normal LLE, Normal Face INSTRUMENT TECHNOLOGIST Sensory: Normal: RUE, LUE, RLE, LLE, Face - Cardiac Rhythm: Regular Murmur: None JVD: No Carotid Bruit: No - Pulmonary Breath Sounds: bilateral Clear Respiratory Effort: Symmetrical Anesthesia Assess/Plan ASA Score: 1 Level of consciousness: Cooperative Anesthetic Plan: Epidural
--- NOTE | 2019-07-29 12:43 | Anesthesia Procedures ---
Date of Encounter: 07/29/19 Time of Encounter: 12:00 Procedures: Anesthesia - Epidural/Spinal Patient ID/Chart reviewed: Yes Patient examined: Yes OB Eval: Gestational age: 39 OB Eval: : 2 OB Eval: Hx Para: 1 OB Eval: Contractions: Non-stressed pattern Consent Obtained: Yes Supplemental Oxygen: None/Room Air Site Prep: Aseptic Technique, Sterile prep and drape, Povidone-Iodine 1% Patient position: upright Amount of Local Anesthetic used: 3 Touhy Needle Gauge: 18 Touhy Needle Depth (cm): 5 Catheter Depth at Skin (cm): 8 Test Dose (1.5% Lido + Epi): Volume given (mls): 3 Test Dose Result: Negative Loading Dose Administered: Thru Catheter Infusion Rate (mls/hr): [address]: Tegaderm, Tape Interspace Used: L4-L5 Loss of Resistance (NIRAV): Yes Blood: No CSF: No Paresthesia: No Vitals + FHT's: stable throughout see nursing notes
== END 2019-07-29 13:21 | disposition home or self-care (01) ==
LOC: 1NENULAB
PROVIDERS: ADMIT Registered Nurse; ATTEND Registered Nurse

== ENCOUNTER → 2019-07-31 18:20 | Observation (INO) ==
[2019-07-31 16:55] LABS: Bilirubin,Urine Negative (Negative); Blood,Urine Small (Negative); Clarity,Urine Cloudy (Clear); Color,Urine Yellow (Yellow); Glucose,Urine (UA) Normal (Normal); Ketones,Urine Negative (Negative); Leukocyte Esterase,Urine Moderate (Negative); Nitrite,Urine Negative (Negative); PH,Urine 6.5 pH Units (5.0-8.0); Protein,Urine Negative (Neg-Trace); Urobilinogen,Urine Normal (Normal)
[2019-07-31 16:58] LABS: Bacteria,Urine Few per hpf (None-Few); Hyaline Casts,Urine None Seen per lpf (None-Few); Squamous Epithelial Cell,Urine Many per lpf (None-Few); WBC,Urine 15-30 per hpf (0-3)
[2019-07-31 17:12] LABS: Amphetamine Screen,Urine Negative ng/mL (Cutoff=1000); Barbiturate Screen,Urine Negative ng/mL (Cutoff=200); Benzodiazepines Screen,Urine Negative ng/mL (Cutoff=200); Cannabinoid Screen,Urine Negative ng/mL (Cutoff = 50); Cocaine Screen,Urine Negative ng/mL (Cutoff= 300); Opiate Screen,Urine Negative ng/mL (Cutoff=300); Phencyclidine Screen,Urine Negative ng/mL (Cutoff=25)
--- NOTE | 2019-07-31 18:00 | Discharge Summary ---
Date of Encounter: 07/31/19 Time of Encounter: 17:59 - Discharge Diagnosis (1) Urinary urgency Priority: Secondary Status: Acute Comments: Continue macrobid Advised to follow up with urology - call office friday for referral (2) 35 weeks gestation of Priority: Primary Status: Acute Comments: Continue routine pnc Follow up with Dr. Coronel as scheduled Discharge home - Discharge Medications Prescriptions: New Phenazopyridine HCl [Azo Urinary Pain Relief] 99.5 mg PO TID PRN 2 Days #6 tablet PRN Reason: Pain Doxylamine Succinate [Unisom] 25 mg PO QPM PRN 5 Days #5 tablet PRN Reason: Insomnia Continued Vit No.129/Iron/FA [ One Daily Tablet] 1 mg PO DAILY Nitrofurantoin (BID) [Macrobid] 100 mg PO BID Home Medications: Vit No.129/Iron/FA [ One Daily Tablet] 1 mg PO DAILY 07/09/18 [History] Nitrofurantoin (BID) [Macrobid] 100 mg PO BID 07/28/19 [History] Doxylamine Succinate [Unisom] 25 mg PO QPM PRN 5 Days #5 tablet 07/31/19 [Rx] Phenazopyridine HCl [Azo Urinary Pain Relief] 99.5 mg PO TID PRN 2 Days #6 tablet 07/31/19 [Rx] Allergies/Adverse Reactions: Allergy/AdvReac Type Severity Reaction Status Date / Time No Known Allergies Allergy Verified 07/28/19 02:52 Data Procedures and tests throughout hospitalization: Laboratory Tests 07/31/19 07/31/19 16:30 16:30 Urine Color Yellow Urine Clarity Cloudy A Urine pH 6.5 Ur Specific [place] 1.020 Urine Protein Negative Urine Glucose (UA) Normal Urine Ketones Negative Urine Blood Small H Urine Nitrite Negative Urine Bilirubin Negative Urine Urobilinogen Normal Ur Leukocyte Esterase Moderate H Urine Microscopic RBC 3-5 H Urine Microscopic WBC 15-30 H Ur Squamous Epith Cells Many H Urine Bacteria Few Hyaline Casts None Seen Ur Culture Indicated? YES A Urine Opiates Screen Negative Ur Buprenorphine Scrn Negative Ur Barbiturates Screen Negative Ur Phencyclidine Scrn Negative Ur Amphetamines Screen Negative U Benzodiazepines Scrn Negative Urine Cocaine Screen Negative U Marijuana (THC) Screen Negative Ur Drug Screen Interp See Below Labs on day of discharge: Labs from last 24 hours 07/31/19 07/31/19 16:30 16:30 Urine Color Yellow Urine Clarity Cloudy A Urine pH 6.5 Ur Specific [place] 1.020 Urine Protein Negative Urine Glucose (UA) Normal Urine Ketones Negative Urine Blood Small H Urine Nitrite Negative Urine Bilirubin Negative Urine Urobilinogen Normal Ur Leukocyte Esterase Moderate H Urine Microscopic RBC 3-5 H Urine Microscopic WBC 15-30 H Ur Squamous Epith Cells Many H Urine Bacteria Few Hyaline Casts None Seen Ur Culture Indicated? YES A Urine Opiates Screen Negative Ur Buprenorphine Scrn Negative Ur Barbiturates Screen Negative Ur Phencyclidine Scrn Negative Ur Amphetamines Screen Negative U Benzodiazepines Scrn Negative Urine Cocaine Screen Negative U Marijuana (THC) Screen Negative Ur Drug Screen Interp See Below Date of admission: 07/31/19 16:09 Discharging clinician: Caroline Thomas Anticipated date of discharge: 07/31/19 - Patient Status Disposition: Home, Self-Care Condition: Good Functional capacity at discharge: independent ambulation Overall status at discharge: patient is progressing back to baseline - Discharge Instructions Follow Up With: Paul Coronel MD [Partnered Physician] - - Diet and Activity Activity: increase activity as tolerated Diet: regular diet Hospital Course QUALITY CONTROL SYSTEMS MANAGER Reason for admission: other Discharge diagnosis: other Hospital course: Patient presents with complaint of 3 day history of urinary urgency and frequency. She states she still she is unable to empty her bladder. Urinalysis was Rebetron today and found to be improving from the previous testing. She is continuing to take Macrobid. She is recommended to follow up with urology as previously recommended for follow-up testing on kidney stone. She was discharged home with prescription for Azo to help with pain through the weekend Time Attestation: Total time spent providing and/or coordinating discharge services: Time Spent: Less than 30 minutes Exam - Constitutional General appearance IM: mild distress, A&O X 3, pleasant, answers questions appropriately - Respiratory Respiratory exam: Present: CTAB - Cardiovascular Cardiovascular exam IM: Present: RRR, +S1, +S2 - GI/Abdominal GI/Abdominal exam IM: normal bowel sounds, no peritoneal signs - Rectal Rectal exam: deferred - Uterine Tone: Firm - Extremities Exam Extremities exam IM: Present: full ROM, normal capillary refill, normal inspection, radial pulses palpable and symmetrical - Neurological Exam Neurological exam: alert, CN II-XII intact, normal gait, oriented X3, reflexes normal, no focal deficits, strengths equal and symetr throughout - VTE Reasons for not Prescribing Prophylaxis: Treatment not Indicated - Low risk for VTE
== END | disposition home or self-care (01) ==
LOC: 1NENULAB
PROVIDERS: ADMIT Obstetrics & Gynecology; ATTEND Obstetrics & Gynecology

== ENCOUNTER 2019-08-24 08:30 | Inpatient (IN) ==
[2019-08-24] MEDS ORDERED: Famotidine 20 MG/2 ML VIAL IVP PRN (08:51)
[2019-08-24] MEDS ORDERED: Metoclopramide 10 MG/2 ML VIAL IVP PRN (08:51)
[2019-08-24] MEDS ORDERED: Ondansetron 4 MG/2 ML VIAL IVP PRN (08:51)
[2019-08-24] MEDS ORDERED: *HR* Nalbuphine 10 MG/ML AMPUL IVP PRN (08:51)
[2019-08-24] MEDS ORDERED: Oxytocin 20 units/ LR 1000 mL 20 UNIT/1,000 ML BAG IVC SCH ×2 (09:00→20:09)
[2019-08-24] MEDS ORDERED: Ringers Solution, Lactated 1,000 ML IVC SCH (09:00)
--- NOTE | 2019-08-24 09:02 | Anesthesia Evaluation PreOp ---
Date of Encounter: 08/24/19 Time of Encounter: 11:51 - Past History Planned Operation: ROXANN Cardiac History: Denies any Significant Hx Pulmonary History: Denies Any Significant HX DIGITAL MARKETING CONSULTANT History: Denies Any Significant HX Other Medical History: Renal (stones), GERD Anesthesia History: No Prior Anesthetic Complications, Past Anesthesia (ROXANN x 1, lymph node, Tonsil) : Yes Test: Positive Alcohol Use: none Drug use: none Medications and Allergies Vit No.129/Iron/FA [ One Daily Tablet] 1 mg PO DAILY 07/09/18 [History] Allergy/AdvReac Type Severity Reaction Status Date / Time No Known Allergies Allergy Verified 07/28/19 02:52 - Meds/Allergy Pre-op Review Medications Reviewed: Yes Allergies Reviewed: Yes Beta Blockers on Current Med List: No Anesthesia Results - Labs 08/24/19 09:20 Anesthesia Exam 114/62 94 16 fht 139 Height: 5'7" Weight: 104 k NPO (# of Hours): 3 Pain Scale: 3 Pain Scale Used: Numeric (1 - 10) - HEENT Pupil (Motor): Pupils equal Mallampati: I Teeth: Normal Oral Opening: Greater than 3 - DIGITAL MARKETING CONSULTANT LOC: Oriented DIGITAL MARKETING CONSULTANT Motor: Normal RUE, Normal LUE, Normal RLE, Normal LLE, Normal Face DIGITAL MARKETING CONSULTANT Sensory: Normal: RUE, LUE, RLE, LLE, Face - Cardiac Rhythm: Regular Murmur: None - Pulmonary Breath Sounds: bilateral Clear Respiratory Effort: Symmetrical Anesthesia Assess/Plan ASA Score: 2 Level of consciousness: Cooperative, Oriented Anesthetic Plan: Epidural (risks discussed, questions answered, consented) Autologous Blood: No Monitoring Plan: Standard Monitors Recovery Plan: Other
[2019-08-24 09:51] LABS: Amphetamine Screen,Urine Negative ng/mL (Cutoff=1000); Barbiturate Screen,Urine Negative ng/mL (Cutoff=200); Benzodiazepines Screen,Urine Negative ng/mL (Cutoff=200); Cannabinoid Screen,Urine Negative ng/mL (Cutoff = 50); Cocaine Screen,Urine Negative ng/mL (Cutoff= 300); Opiate Screen,Urine Negative ng/mL (Cutoff=300); Phencyclidine Screen,Urine Negative ng/mL (Cutoff=25)
[2019-08-24 09:52] LABS: Basophils % 0.2 %; Eosinophils # 0.1 K/mcL (0.0-0.6); Eosinophils % 1.5 %; Hematocrit 35.1 % (35.3-44.9); Hemoglobin 11.8 g/dL (11.5-15.4); Immature Granulocytes % 0.5 % (0-4); Lymphocytes # 2.2 K/mcL (0.6-4.6); Mean Corpuscular HGB Conc 33.6 g/dL (31.6-35.5); Mean Corpuscular Hemoglobin 31.3 pg (28.0-33.3); Mean Corpuscular Volume 93.1 fL (83.0-100.0); Mean Platelet Volume 10.8 fL (9.4-12.4); Monocytes # 0.5 K/mcL (0.0-1.3); Monocytes % 5.7 %; Neutrophils # 5.4 K/mcL (1.6-8.9); Platelet Count 214 K/mcL (140-400); Red Blood Count 3.77 M/mcL (3.82-4.97); Red Cell Distribution Width 13.4 % (11.5-14.5); Segmented Neutrophils % 65.1 %; White Blood Count 8.3 K/mcL (4.3-11.1)
[2019-08-24] MEDS ORDERED: cefTRIAXone 1,000 MG in 0.9 % Sodium Chloride Mini Bag 100 ML IVPB ONE (10:19)
--- NOTE | 2019-08-24 10:24 | OB Labor Progress Note ---
Date of Encounter: 08/24/19 Time of Encounter: 10:20 Labor Progress Note - Subjective Subjective: Ms Chopra is comfortable in bed. She is anxious about her induction. She states she is having UTI symptoms and her antibiotics she was given did not help with her dysuria and urgency. She is also concerned she may get another uterine infection after delivery and her current baby will also get an infection. Discussed with patient - no history of GBS. After looking at one year old's chart, blood cultures were negative and therefore will not need to treat for GBS history. - Vital Signs Vital Signs: VSS - Cervix Cervix: 2/60/-2 - Heart Tones Heart Tones: 140 moderate variability, 15 x 15 accels, and no decels - Mcdowell Mcdowell: contractions every 6 - 10 minutes - Interventions Interventions: 60/40 cervical jackson balloon placed. Patient tolerated well. fetus tolerated well - Plan Plan: Continue routine labor management Anticipate vaginal delivery Start pitocin per orders Patient may have nubain/epidural upon request anticipate vaginal delivery POC per consult with Dr Coronel
[2019-08-24] MEDS ORDERED: *HR* FentaNYL (PF) 100 MCG/2 ML VIAL EP ONE (11:52)
[2019-08-24] MEDS ORDERED: Ropivacaine/PF 0.2% 20 ML VIAL EP ONE (11:52)
[2019-08-24] MEDS ORDERED: Epidural Premix (fent/bupiv) 110 ML EP SCH (12:00)
[2019-08-24] MEDS ORDERED: Epidural Premix (fent/bupiv) 110 ML EP ONE (12:13)
--- NOTE | 2019-08-24 12:40 | Anesthesia Procedures ---
Date of Encounter: 08/24/19 Time of Encounter: 12:38 Procedures: Anesthesia - Epidural/Spinal Patient ID/Chart reviewed: Yes Patient examined: Yes OB Eval: Gestational age: 39 OB Eval: : 2 OB Eval: Hx Para: 1 OB Eval: Dilated at (cm): 7 OB Eval: Contractions: Non-stressed pattern Consent Obtained: Yes Supplemental Oxygen: None/Room Air Site Prep: Aseptic Technique, Sterile prep and drape, 0.5% Chlorhexidine/Alcohol Patient position: upright Local Anesthetic: Lidocaine 1% Amount of Local Anesthetic used: 3 Touhy Needle Gauge: 18 Touhy Needle Depth (cm): 5 Catheter Depth at Skin (cm): 18 Test Dose (1.5% Lido + Epi): Volume given (mls): 3 Test Dose Result: Negative Loading Dose: Fentanyl (mcg): 100 Loading Dose: Other: ropavacaine 0.2% 5cc Loading Dose Administered: Thru Touhy Needle Infusion Med: 0.125% Bupivacaine w/ 2 mcg/ml Fentanyl Infusion Rate (mls/hr): 15 (pcea 5cc q30") Catheter Secured in Place: Tegaderm Interspace Used: L2-L3 Loss of Resistance (NIRAV): Yes Blood: No CSF: No Paresthesia: No Procedure: aseptic, alfredo well, VSS, effective Vitals + FHT's: 112/78 68 16 fht 133
--- NOTE | 2019-08-24 12:54 | Event Note ---
Date of Encounter: 08/24/19 Time of Encounter: 12:53 Kelley is out. Cervix was checked. Patient is now 7%, 80% effaced and -1 station. Cervix is very posterior. Artificial rupture membranes was performed with clear fluid being noted. Epidural is functioning properly. Category 1 tracing. Irregular contractions
--- NOTE | 2019-08-24 18:01 | OB/GYN Procedure Note ---
Delivery - Delivery Date: 08/24/19 Provider: Paul Coronel Intrapartum events: none Delivery induction: oxytocin, jackson Delivery augmentation: rupture of membranes Delivery monitor: external FHT, external uterine Anesthesia: epidural Quantitated Blood Loss: 300 - Infant (s) Infant A Delivery Date: 08/24/19 Delivery Time: 17:44 Presentation: vertex Position: GIRMA Route of delivery: Gender: Male Viability: Viable at 1 minute: 8 at 5 mins: 9 Shoulder Dystocia: encountered Shoulder Dystocia Maneuvers: Spenser maneuver, suprapubic pressure Shoulder dystocia time elapsed: 10 sec Specimens collected: cord blood Placenta: spontaneous Cord: nuchal cord, 3 umbilical vessels - Repair Episiotomy: none Laceration Description: Perineal - 1st Degree - Complications Delivery complications: none Delivery comments: This patient progressed rapidly to complete and pushing. She had a rapid spontaneous vaginal delivery of a male over an intact perineum. 's head was in the perineum easily. There was a tight cord around neck 1 which was easily reduced. There was a 10 second shoulder dystocia which was reduced with suprapubic pressure and Spenser maneuver. Infant cried immediately upon delivery. The cord was clamped cut after 1 minute. was passed immediately to NICU team in attendance. Cord blood was obtained. Placenta was delivered spontaneously intact. There are no cervical, vaginal, periurethral lacerations noted. There was a first-degree perineal laceration repaired with 0- Vicryl suture in usual fashion. Patient delivered a male infant with Apgars of 8 at 1 minute and 9 at 5 minutes. Assessment blood loss 3 mL. Weight is pending his mother skin the skin. - Disposition Mom disposition: stable in LDR [place] disposition: stable in LDR
--- NOTE | 2019-08-24 18:04 | OB/GYN History & Physical ---
Date of Encounter: 08/24/19 Time of Encounter: 12:00 Assessment and Plan (1) Elective induction of labor planned Current visit: No Status: Acute (2) 39 weeks gestation of Current visit: Yes Status: Acute History of Present Illness Chief complaint: induction HPI: Ms. Chopra is a 24 year old female who presented for induction of labor at 39 weeks and 2 days. Patient is a due date of August 29. She is doing well without complaints. 60 mL Kelley and Pitocin was started on this patient. She is doing well without complaints. She has no drug allergies. She is currently on vitamins. She has no chronic medical conditions. Surgical history includes a tonsillectomy and lymph node removal after Scratch fever. She has no history of abnormal Pap smears, STDs or pelvic infections. Socially she denies tobacco, alcohol, illicit drug use. Obstetric history significant for one term vaginal delivery uncomplicated. Family history is noncontributory. Patient is adopted. Past Med Surg Social Fam HX - Past Medical History Medical history: kidney stones, other Additional medical history: frequent UTI's this . cat scratch fever as a child Psychiatric history: no psych history - Past Surgical History Surgical History: other Additional surgical history: T&A 2010, lymphectomy due to cat scratch fever - Social History Smoking Status: Former smoker Smokeless Tobacco Status: No Alcohol use: none Drug use: none - Family History Mother Family Member Ethnicity: Non- Living Status: Still Living Hx Family Cardiac Disorders: No Hx Family Respiratory Disorders: No Hx Family Cancer: No Hx Family GI Disorders: No Hx Family Genitourinary Disorders: No Hx Family Endocrine Disorder: No Hx Family Musculoskeletal Disorders: No Hx Family Neuromuscular Disorders: No Hx Family Neurologic Disorders: No Hx Family HEENT Disorders: No Hx Family Autoimmune Disorders: No Hx Family Reproductive Disorders: No Hx Family Psychosocial Disorders: No Hx Family Medical Disorders: No Obstetrical History - Pregnancies : 2 Para: 1 Livin Medications and Allergies Vit No.129/Iron/FA [ One Daily Tablet] 1 mg PO DAILY 07/09/18 [History] Allergy/AdvReac Type Severity Reaction Status Date / Time No Known Allergies Allergy Verified 07/28/19 02:52 Review of System OB All systems PM: reviewed and no additional remarkable complaints except as stated Exam - Constitutional Constitutional: well developed, well nourished, no acute distress, average body habitus - HEENT HEENT: EOMI, PERRL, Normocephaly - Neck Neck exam: full ROM - Lungs Respiratory exam: CTAB - Cardiovascular Cardiovascular exam: RRR - Abdomen Abdomen: Present: bowel sounds normal, gravid, non tender - Extremities Extremities exam: full ROM, normal inspection - Vagina Vagina: Present: normal moisture - Cervix Dilation: 2 Effacement: 70 Station: -2 - Uterus Uterus exam: Present: normal size Results Result Diagrams: 08/24/19 09:20 Abnormal lab results RBC 3.77 M/mcL (3.82-4.97) L 08/24/19 09:20 Hct 35.1 % (35.3-44.9) L 08/24/19 09:20 All other labs normal. - VTE Reasons for not Prescribing Prophylaxis: Treatment not Indicated - Low risk for VTE
[2019-08-24] MEDS ORDERED: Measles/Mumps/Rubella Vacc 0.5 ML VIAL SQ PRN (20:09)
[2019-08-24] MEDS ORDERED: Acetaminophen 325 MG TABLET PO PRN (20:09)
[2019-08-24] MEDS: Ibuprofen 600 MG TABLET PO PRN (21:30)
[2019-08-25] MEDS: Ibuprofen 600 MG TABLET PO PRN (04:04)
[2019-08-25 04:49] LABS: Basophils % 0.3 %; Eosinophils # 0.1 K/mcL (0.0-0.6); Eosinophils % 1.1 %; Hematocrit 34.2 % (35.3-44.9); Hemoglobin 11.4 g/dL (11.5-15.4); Immature Granulocytes % 0.4 % (0-4); Lymphocytes # 2.7 K/mcL (0.6-4.6); Lymphocytes % 22.5 %; Mean Corpuscular HGB Conc 33.3 g/dL (31.6-35.5); Mean Corpuscular Hemoglobin 31.1 pg (28.0-33.3); Mean Corpuscular Volume 93.4 fL (83.0-100.0); Mean Platelet Volume 10.6 fL (9.4-12.4); Monocytes # 0.9 K/mcL (0.0-1.3); Monocytes % 7.8 %; Platelet Count 190 K/mcL (140-400); Red Blood Count 3.66 M/mcL (3.82-4.97); Red Cell Distribution Width 13.2 % (11.5-14.5); Segmented Neutrophils % 67.9 %; White Blood Count 11.8 K/mcL (4.3-11.1)
[2019-08-25 08:05] VITALS: BP 104/69
[2019-08-25] MEDS ORDERED: Prenatal Vit/FA 1 EACH TABLET PO SCH (09:00)
--- NOTE | 2019-08-25 10:10 | Discharge Summary ---
Date of Encounter: 08/25/19 Time of Encounter: 10:07 - Discharge Diagnosis (1) (normal spontaneous vaginal delivery) Priority: Primary Status: Acute Comments: Pt meeting all milestones. She is requesting discharge home today. - Discharge Medications Prescriptions: New Ibuprofen [Motrin] 600 mg PO Q6HR PRN #30 tablet PRN Reason: Cramping Docusate [Colace] 100 mg PO BID #30 capsule Continued Vit No.129/Iron/FA [ One Daily Tablet] 1 mg PO DAILY Home Medications: Vit No.129/Iron/FA [ One Daily Tablet] 1 mg PO DAILY 07/09/18 [History] Docusate [Colace] 100 mg PO BID #30 capsule 08/25/19 [Rx] Ibuprofen [Motrin] 600 mg PO Q6HR PRN #30 tablet 08/25/19 [Rx] Allergies/Adverse Reactions: Allergy/AdvReac Type Severity Reaction Status Date / Time No Known Allergies Allergy Verified 07/28/19 02:52 Data Procedures and tests throughout hospitalization: Laboratory Tests 08/24/19 08/24/19 08/25/19 09:20 09:20 04:21 WBC 8.3 11.8 H RBC 3.77 L 3.66 L Hgb 11.8 11.4 L Hct 35.1 L 34.2 L MCV 93.1 93.4 MCH 31.3 31.1 MCHC 33.6 33.3 RDW 13.4 13.2 Plt Count 214 190 MPV 10.8 10.6 Immature Gran % 0.5 0.4 Seg Neutrophils % 65.1 67.9 Lymphocytes % 27.0 22.5 Monocytes % 5.7 7.8 Eosinophils % 1.5 1.1 Basophils % 0.2 0.3 Neutrophils # 5.4 8.0 Lymphocytes # 2.2 2.7 Monocytes # 0.5 0.9 Eosinophils # 0.1 0.1 Basophils # 0.0 0.0 Urine Opiates Screen Negative Ur Buprenorphine Scrn Negative Ur Barbiturates Screen Negative Ur Phencyclidine Scrn Negative Ur Amphetamines Screen Negative U Benzodiazepines Scrn Negative Urine Cocaine Screen Negative U Marijuana (THC) Screen Negative Ur Drug Screen Interp See Below Labs on day of discharge: Labs from last 24 hours 08/25/19 04:21 WBC 11.8 H RBC 3.66 L Hgb 11.4 L Hct 34.2 L MCV 93.4 MCH 31.1 MCHC 33.3 RDW 13.2 Plt Count 190 MPV 10.6 Immature Gran % 0.4 Seg Neutrophils % 67.9 Lymphocytes % 22.5 Monocytes % 7.8 Eosinophils % 1.1 Basophils % 0.3 Neutrophils # 8.0 Lymphocytes # 2.7 Monocytes # 0.9 Eosinophils # 0.1 Basophils # 0.0 Date of admission: 08/24/19 08:40 Primary care physician: PCP NONE Consults: 08/24/19 20:09 Consult to [employer] Person [CONS] Routine Comment: Vaginal delivery, consult needed Discharging clinician: Helga Zurita Anticipated date of discharge: 08/25/19 - Patient Status Disposition: Home, Self-Care Condition: Good Functional capacity at discharge: independent ambulation Overall status at discharge: patient is progressing back to baseline - Discharge Instructions Follow Up With: NONE,PCP [Primary Care Provider] - Paul Coronel MD [Partnered Physician] - - Diet and Activity Activity: increase activity as tolerated Diet: regular diet Hospital Course Reason for admission: induction of labor Delivery: Episiotomy: none Laceration: 1st degree Other procedures: none complications: none Discharge diagnosis: IUP at term delivered [place] baby: male Hospital course: - Delivery Date: 08/24/19 Provider: Paul Coronel Intrapartum events: none Delivery induction: oxytocin, jackson Delivery augmentation: rupture of membranes Delivery monitor: external FHT, external uterine Anesthesia: epidural Quantitated Blood Loss: 300 - Infant (s) Infant A Infant Delivery Date: 08/24/19 Delivery Time: 17:44 Presentation: vertex Position: GIRMA Route of delivery: Gender: Male Viability: Viable at 1 minute: 8 at 5 mins: 9 Shoulder Dystocia: encountered Shoulder Dystocia Maneuvers: Spenser maneuver, suprapubic pressure Shoulder dystocia time elapsed: 10 sec Specimens collected: cord blood Placenta: spontaneous Cord: nuchal cord, 3 umbilical vessels - Repair Episiotomy: none Laceration Description: Perineal - 1st Degree - Complications Delivery complications: none - Disposition Mom disposition: home PPD1 [place] disposition: home with mother, bottle feeding Time Attestation: Total time spent providing and/or coordinating discharge services: Time Spent: Less than 30 minutes Exam - Constitutional Vitals: Temp Pulse Resp BP Pulse Ox 98.0 F 71 16 104/69 97 08/25/19 08:04 08/25/19 08:04 08/25/19 08:04 08/25/19 08:04 08/25/19 04:07 General appearance IM: A&O X 3 - Respiratory Respiratory exam: Present: CTAB - Cardiovascular Cardiovascular exam IM: Present: RRR - GI/Abdominal GI/Abdominal exam IM: soft - Uterine Tone: Firm Uterus Position: 1 Finger Below Umbilicus - Extremities Exam Extremities exam IM: Present: normal inspection - Neurological Exam Neurological exam: normal gait, oriented X3 - Psychiatric Additional comments: reports good mood, desires to discuss contraception at PPV
== END 2019-08-25 16:12 | disposition home or self-care (01) | DRG 807 ==
LOC: 1NENULAB 08:40 → 1NENUOBS 21:28
PROVIDERS: ADMIT Obstetrics & Gynecology; ATTEND Obstetrics & Gynecology